=== PATIENT | male | born 1980 | race Caucasian/White ===

== ENCOUNTER → 2022-03-24 | Outpatient (CLI) | payer OTHER | LOC: LAB 10:13 → LAB SHORT 10:13 | DX: J02.9 Acute pharyngitis, unspecified (principal) | CPT/HCPCS: 87081; 87147 ==

== ENCOUNTER 2022-05-01 09:54 | Emergency (ER) | payer OTHER ==
[~2022-05-01] VITALS: Ht 185.4 cm; Wt 88.5 kg
[2022-05-01] MEDS ORDERED: ALBU90OI (10:28)
[2022-05-01 11:22] LABS: BASOPHILS ABSOLUTE AUTO 0.06 K/mm3 (0.00-0.23); BASOPHILS PERCENT AUTO 1 % (0-2); EOSINOPHILS ABSOLUTE AUTO 0.08 K/mm3 (0.00-0.68); EOSINOPHILS PERCENT AUTO 1 % (0-6); Hematocrit 48.2 % (37.0-53.0); Hemoglobin 16.6 g/dL (13.5-17.5); IMMATURE GRAN ABSOLUTE AUTO 0.04 K/mm3 (0.00-0.10); IMMATURE GRAN PERCENT AUTO 0 % (0-1); LYMPHOCYTES ABSOLUTE AUTO 2.37 K/mm3 (0.84-5.20); LYMPHOCYTES PERCENT AUTO 26 % (21-46); MONOCYTES ABSOLUTE AUTO 0.72 K/mm3 (0.16-1.47); MONOCYTES PERCENT AUTO 8 % (4-13); Mean Corpuscular HGB 32.5 pg (26.0-34.0); Mean Corpuscular HGB Conc 34.4 g/dL (31.5-36.5); Mean Corpuscular Volume 94 fL (80-100); Mean Platelet Volume 10.5 fL (9.1-12.4); NEUTROPHILS ABSOLUTE AUTO 5.95 K/mm3 (1.96-9.15); NEUTROPHILS PERCENT AUTO 65 % (41-73); Platelet Count 254 K/mm3 (150-400); RDW Coefficient Variation 13.2 % (11.7-14.2); Red Blood Cell Count 5.11 M/mm3 (4.30-5.90); White Blood Cell Count 9.22 K/mm3 (4.00-11.30)
[2022-05-01 11:39] LABS: Bilirubin, Total 0.9 mg/dL (0.1-1.0); Bun/Creatinine Ratio 12.6 (12.0-20.0); Calcium, Blood 8.5 mg/dL (8.5-10.1); Creatinine, Blood 0.87 mg/dL (0.60-1.20); Potassium, Blood 4.3 mmol/L (3.5-5.5)
[2022-05-01 12:37] LABS: Influenza A, PCR NEGATIVE (NEGATIVE); Influenza B, PCR NEGATIVE (NEGATIVE); Resp Syncytial Virus, PCR NEGATIVE (NEGATIVE); SARS-Cov-2 (COVID-19) PCR, MMC NEGATIVE (NEGATIVE)
[2022-05-01] MEDS ORDERED: Lasix20 MG PO (13:31)
== END 2022-05-01 13:41 | disposition home or self-care (01) ==
LOC: ER 09:54
PROVIDERS: Emergency Medicine; Internal Medicine Hematology & Oncology
DX: I50.9 Heart failure, unspecified (principal); J45.909 Unspecified asthma, uncomplicated; Z20.822 Contact with and (suspected) exposure to COVID-19
CPT/HCPCS: 0241U; 36415; 71046; 80053; 83880; 85025; 93005; 93010; A9270

== ENCOUNTER 2022-05-08 10:37 | Emergency (ER) | payer SELFPAY ==
[~2022-05-08] VITALS: Ht 185.4 cm; Wt 93.9 kg
[~2022-05-08 10:37] MED LIST: ALBU90OI; Lasix20 MG PO
[2022-05-08 12:21] LABS: BASOPHILS ABSOLUTE AUTO 0.07 K/mm3 (0.00-0.23); BASOPHILS PERCENT AUTO 1 % (0-2); EOSINOPHILS ABSOLUTE AUTO 0.07 K/mm3 (0.00-0.68); EOSINOPHILS PERCENT AUTO 1 % (0-6); Hematocrit 48.6 % (37.0-53.0); Hemoglobin 16.4 g/dL (13.5-17.5); IMMATURE GRAN ABSOLUTE AUTO 0.05 K/mm3 (0.00-0.10); IMMATURE GRAN PERCENT AUTO 1 % (0-1); LYMPHOCYTES ABSOLUTE AUTO 2.25 K/mm3 (0.84-5.20); LYMPHOCYTES PERCENT AUTO 24 % (21-46); MONOCYTES PERCENT AUTO 9 % (4-13); Mean Corpuscular HGB 31.9 pg (26.0-34.0); Mean Corpuscular HGB Conc 33.7 g/dL (31.5-36.5); Mean Corpuscular Volume 95 fL (80-100); Mean Platelet Volume 10.6 fL (9.1-12.4); NEUTROPHILS PERCENT AUTO 65 % (41-73); Platelet Count 256 K/mm3 (150-400); RDW Standard Deviation 45.9 fL (35.1-46.3); Red Blood Cell Count 5.14 M/mm3 (4.30-5.90); White Blood Cell Count 9.34 K/mm3 (4.00-11.30)
[2022-05-08 12:35] LABS: Albumin, Blood 2.9 g/dL (3.4-5.0); Bilirubin, Total 0.9 mg/dL (0.1-1.0); Bun/Creatinine Ratio 17.3 (12.0-20.0); Calcium, Blood 8.5 mg/dL (8.5-10.1); Creatinine, Blood 1.04 mg/dL (0.60-1.20); Potassium, Blood 4.7 mmol/L (3.5-5.5); Total Protein, Blood 5.9 g/dL (6.4-8.2)
[2022-05-08] MEDS ORDERED: LISI5 PO (12:49)
[2022-05-08] MEDS ORDERED: Lopressor 25 mg25 MG PO (14:29)
[2022-05-08] MEDS ORDERED: FURO40 PO (14:29)
== END 2022-05-08 15:26 | disposition home or self-care (01) ==
LOC: ER 10:37
PROVIDERS: Student in an Organized Health Care Education/Training Program
DX: I50.9 Heart failure, unspecified (principal); Z79.899 Other long term (current) drug therapy; Z72.0 Tobacco use
CPT/HCPCS: 36415; 71045; 80053; 83880; 84484; 85025; 93005; 93010; A9270; J1940

== ENCOUNTER 2022-05-15 14:00 | Inpatient (IN) | payer OTHER ==
[~2022-05-15] VITALS: Ht 185.4 cm; Wt 85.5 kg
[~2022-05-15 14:00] MED LIST changes: -FURO80 PO; -METOPROLOL TART25 MG PO; -POT CHLORIDE 20 MEQ
[2022-05-15 20:36] LABS: BASOPHILS ABSOLUTE AUTO 0.07 K/mm3 (0.00-0.23); BASOPHILS PERCENT AUTO 1 % (0-2); EOSINOPHILS ABSOLUTE AUTO 0.08 K/mm3 (0.00-0.68); EOSINOPHILS PERCENT AUTO 1 % (0-6); Hemoglobin 15.9 g/dL (13.5-17.5); IMMATURE GRAN ABSOLUTE AUTO 0.06 K/mm3 (0.00-0.10); IMMATURE GRAN PERCENT AUTO 1 % (0-1); LYMPHOCYTES ABSOLUTE AUTO 2.97 K/mm3 (0.84-5.20); LYMPHOCYTES PERCENT AUTO 23 % (21-46); MONOCYTES ABSOLUTE AUTO 1.37 K/mm3 (0.16-1.47); MONOCYTES PERCENT AUTO 11 % (4-13); Mean Corpuscular HGB 31.9 pg (26.0-34.0); Mean Corpuscular HGB Conc 35.3 g/dL (31.5-36.5); Mean Corpuscular Volume 90 fL (80-100); Mean Platelet Volume 10.5 fL (9.1-12.4); NEUTROPHILS PERCENT AUTO 65 % (41-73); Platelet Count 252 K/mm3 (150-400); RDW Coefficient Variation 12.7 % (11.7-14.2); RDW Standard Deviation 41.8 fL (35.1-46.3); Red Blood Cell Count 4.98 M/mm3 (4.30-5.90); White Blood Cell Count 12.95 K/mm3 (4.00-11.30)
[2022-05-15 20:56] LABS: Albumin, Blood 2.7 g/dL (3.4-5.0); Bilirubin, Total 0.6 mg/dL (0.1-1.0); Globulin, Blood 2.7 g/dL (2.2-4.0); Potassium, Blood 3.7 mmol/L (3.5-5.5); Total Protein, Blood 5.4 g/dL (6.4-8.2)
[2022-05-15 21:22] LABS: Influenza A, PCR NEGATIVE (NEGATIVE); Influenza B, PCR NEGATIVE (NEGATIVE); Resp Syncytial Virus, PCR NEGATIVE (NEGATIVE); SARS-Cov-2 (COVID-19) PCR, MMC NEGATIVE (NEGATIVE)
[2022-05-16] MEDS ORDERED: POT CHLORIDE 20 MEQ (00:59)
[2022-05-16] MEDS ORDERED: FURO80 PO (00:59)
[2022-05-16] MEDS ORDERED: LISI5 PO (00:59)
[2022-05-16] MEDS ORDERED: METOPROLOL TART25 MG PO (00:59)
[2022-05-16 06:03] LABS: BASOPHILS ABSOLUTE AUTO 0.08 K/mm3 (0.00-0.23); BASOPHILS PERCENT AUTO 1 % (0-2); EOSINOPHILS ABSOLUTE AUTO 0.05 K/mm3 (0.00-0.68); EOSINOPHILS PERCENT AUTO 0 % (0-6); Hematocrit 44.6 % (37.0-53.0); Hemoglobin 15.3 g/dL (13.5-17.5); IMMATURE GRAN ABSOLUTE AUTO 0.06 K/mm3 (0.00-0.10); IMMATURE GRAN PERCENT AUTO 1 % (0-1); LYMPHOCYTES ABSOLUTE AUTO 2.57 K/mm3 (0.84-5.20); LYMPHOCYTES PERCENT AUTO 21 % (21-46); MONOCYTES ABSOLUTE AUTO 1.19 K/mm3 (0.16-1.47); MONOCYTES PERCENT AUTO 10 % (4-13); Mean Corpuscular HGB 31.7 pg (26.0-34.0); Mean Corpuscular HGB Conc 34.3 g/dL (31.5-36.5); Mean Corpuscular Volume 92 fL (80-100); NEUTROPHILS ABSOLUTE AUTO 8.29 K/mm3 (1.96-9.15); NEUTROPHILS PERCENT AUTO 68 % (41-73); Platelet Count 241 K/mm3 (150-400); RDW Coefficient Variation 12.9 % (11.7-14.2); RDW Standard Deviation 43.6 fL (35.1-46.3); Red Blood Cell Count 4.83 M/mm3 (4.30-5.90); White Blood Cell Count 12.24 K/mm3 (4.00-11.30)
[2022-05-16 06:22] LABS: Magnesium, Blood 2.1 mg/dL (1.6-2.4)
[2022-05-16 06:23] LABS: Bun/Creatinine Ratio 13.3 (12.0-20.0); Calcium, Blood 8.1 mg/dL (8.5-10.1); Creatinine, Blood 0.97 mg/dL (0.60-1.20); Potassium, Blood 3.7 mmol/L (3.5-5.5)
[2022-05-16 09:05] LABS: U Amphetamine Screen Not Detected; U Barbituate Screen Not Detected; U Benzodiazapine Screen Not Detected; U Buprenorphine Screen Not Detected; U Cannabinoids Screen Not Detected; U Cocaine Screen Not Detected; U Methadone Screen Not Detected; U Methamphetamine Screen Not Detected; U Opiates Screen Not Detected; U Oxycodone Screen Not Detected; U Phencyclidine Screen Not Detected; U Propoxyphene Screen Not Detected
--- NOTE | 2022-05-16 17:44 | NUR ---
SHIFT SUMMARY PATIENT IS ALERT AND ORIENTED. PATIENT ARRIVED TO MEDICAL FLOOR THIS AFTERNOON AT 1600. PATIENT HAS BEEN IND IN ROOM. PATIENT HAS NOT COMPLAINED OF PAIN, NAUSEA, SOB OR VOMITTING THIS SHIFT. NO ACUTE EVENTS THIS SHIFT. VITAL SIGNS REVIEWED. BED IN LOCKED AND LOWEST POSITION. CALL LIGHT IN PLACE. WILL MONITOR UNTIL SHIFT CHANGE.
--- NOTE | 2022-05-17 04:14 | NUR ---
SHIFT UNREMARKABLE. PATIENT TOOK 2100 AND 2300 MEDICATIONS WITHOUT DIFFICULTY. SLEPT THROUGHOUT REMAINDER OF SHIFT. LUNG AUSCULATION REMARKABLE FOR DIMINISHED BREATH SOUNDS. PATIENT REPORTED LABORED BREATHING. OXYGEN SATURATION HAS BEEN WNL. CALL LIGHT LEFT WITHIN REACH.
[2022-05-17 05:05] LABS: BASOPHILS ABSOLUTE AUTO 0.07 K/mm3 (0.00-0.23); BASOPHILS PERCENT AUTO 1 % (0-2); EOSINOPHILS ABSOLUTE AUTO 0.06 K/mm3 (0.00-0.68); EOSINOPHILS PERCENT AUTO 1 % (0-6); Hematocrit 45.9 % (37.0-53.0); Hemoglobin 15.4 g/dL (13.5-17.5); IMMATURE GRAN ABSOLUTE AUTO 0.04 K/mm3 (0.00-0.10); IMMATURE GRAN PERCENT AUTO 0 % (0-1); LYMPHOCYTES ABSOLUTE AUTO 3.37 K/mm3 (0.84-5.20); LYMPHOCYTES PERCENT AUTO 28 % (21-46); MONOCYTES ABSOLUTE AUTO 1.23 K/mm3 (0.16-1.47); MONOCYTES PERCENT AUTO 10 % (4-13); Mean Corpuscular HGB 31.6 pg (26.0-34.0); Mean Corpuscular HGB Conc 33.6 g/dL (31.5-36.5); Mean Corpuscular Volume 94 fL (80-100); Mean Platelet Volume 10.7 fL (9.1-12.4); NEUTROPHILS ABSOLUTE AUTO 7.08 K/mm3 (1.96-9.15); NEUTROPHILS PERCENT AUTO 60 % (41-73); Platelet Count 220 K/mm3 (150-400); RDW Coefficient Variation 13.1 % (11.7-14.2); RDW Standard Deviation 45.1 fL (35.1-46.3); Red Blood Cell Count 4.87 M/mm3 (4.30-5.90); White Blood Cell Count 11.85 K/mm3 (4.00-11.30)
[2022-05-17 05:29] LABS: Albumin, Blood 2.7 g/dL (3.4-5.0); Albumin/Globulin Ratio 0.8 (0.8-1.8); Bilirubin, Total 1.7 mg/dL (0.1-1.0); Calcium, Blood 8.3 mg/dL (8.5-10.1); Creatinine, Blood 1.08 mg/dL (0.60-1.20); Globulin, Blood 3.2 g/dL (2.2-4.0); Potassium, Blood 4.4 mmol/L (3.5-5.5); Total Protein, Blood 5.9 g/dL (6.4-8.2)
--- NOTE | 2022-05-17 17:00 | NUR ---
SHIFT SUMMARY NO ACUTE CHANGES. PT INDEPENDENT IN ROOM AND AMBULATES IN [place] INDEPENDENTLY. SIGNIFICANT OTHER AT BEDSIDE FOR MOST OF THE DAY. NO C/O PAIN. VSS WITH THE EXCEPTION OF HR WHICH RUNS TACHY IN THE 110'S. BED IN LOWEST POSITION AND CALL LIGHT IN REACH.
--- NOTE | 2022-05-18 04:20 | NUR ---
SHIFT SUMMARY PATIENT IS ALERT AND ORIENTED. PATIENT HAS BEEN IND IN ROOM AND HALLWAYS THIS SHIFT. PATIENT HAS HAD NO ACUTE EVENTS THIS SHIFT. VITAL SIGNS REVIEWED. PATIENT HAS BEEN IN STRICT I/O THIS SHIFT. PATIENT HAS BEEN USING URINAL IND AND HAS BEEN OUTPUTTING A LARGE AMOUNT OF URINE. PATIENT HAS BEEN RUNNING TACHY ON TELE BUT NO UNUSUAL EVENTS. PATIENT HAS HAD NO COMPLAINTS OF PAIN, NAUSEA, SOB OR VOMITTING. BED IN LOCKED AND LOWEST POSITION. CALL LIGHT IN PLACE. WILL MONITOR UNTIL SHIFT CHANGE.
[2022-05-18 08:04] LABS: Magnesium, Blood 2.1 mg/dL (1.6-2.4)
[2022-05-18 08:08] LABS: Bun/Creatinine Ratio 14.4 (12.0-20.0); Calcium, Blood 8.1 mg/dL (8.5-10.1); Creatinine, Blood 0.97 mg/dL (0.60-1.20); Potassium, Blood 3.6 mmol/L (3.5-5.5); Thyroid Stimulating Hormone 1.98 uIU/mL (0.360-4.800)
--- NOTE | 2022-05-18 09:06 | NUR ---
DR ESPINOSA CONTACTED-INCREASED METOPROLOL, LOW RANGE BP THIS RN INSTRUCTED TO ADMIN METOPROLOL, HOLD SPIROLACTONE AND TOROSAMIDE.
--- NOTE | 2022-05-18 18:30 | NUR ---
SHIFT SUMMARY PT A&OX4 AND IN PLEASENT MOOD T/O SHIFT. TOLERATING PO INTAKE. AMBULATING HALLS W/ STEADY GAIT. DENIES SOB, CHEST PAIN-PT STATES "MY CHEST DOESN'T HURT IT IS JUST A DISCOMFORT". TELE IN PLACE. PLAN TO INITIATE PO THINNERS ON NEXT SHIFT. CALL LIGHT W/ IN REACH. TACHYCARDIA NOTED, METOPROLOL INCREASED TO 25MG.
[2022-05-19 05:04] LABS: Bun/Creatinine Ratio 18.4 (12.0-20.0); Calcium, Blood 8.1 mg/dL (8.5-10.1); Creatinine, Blood 1.14 mg/dL (0.60-1.20); Potassium, Blood 4.1 mmol/L (3.5-5.5)
--- NOTE | 2022-05-19 07:08 | NUR ---
Shift Summary Pt AOx4, was over fluid restriction on arrival, rcvd no fluids t/o the night. Pt states he was unable to sleep for most of the night, partly because of dry mouth. Independent in the room. On tele, ran tachy in the 110's. Pt periodically ambulated through the halls. No acute events, pleasant and cooperative with care.
[2022-05-19 16:56] LABS: Influenza A, PCR NEGATIVE (NEGATIVE); Influenza B, PCR NEGATIVE (NEGATIVE); Resp Syncytial Virus, PCR NEGATIVE (NEGATIVE); SARS-Cov-2 (COVID-19) PCR, MMC NEGATIVE (NEGATIVE)
--- NOTE | 2022-05-19 17:03 | NUR ---
SHIFT SUMMARY PT A&OX4, MOOD UP AND DOWN T/O SHIFT. FEVER NOTED, MEDICATED W/ TYLENOL-SWAB AND BLOOD CULTURE PENDING @ THIS TIME. PT C/O ANXIETY, PLAN TO MEDICATE PER EMAR. TOLERATING PO INTAKE WELL. [address] VOIDING LARGE AMOUNTS OF DARK YELLOW URINE. CALL LIGHT W/IN REACH. FRIENDS/FAMILY IN TO SEE PT DURING VISITING HOURS. PT IND, AMB W/ STEADY GAIT.
[2022-05-19 18:55] LABS: BASOPHILS ABSOLUTE AUTO 0.05 K/mm3 (0.00-0.23); BASOPHILS PERCENT AUTO 1 % (0-2); EOSINOPHILS ABSOLUTE AUTO 0.02 K/mm3 (0.00-0.68); EOSINOPHILS PERCENT AUTO 0 % (0-6); Hematocrit 43.9 % (37.0-53.0); Hemoglobin 15.4 g/dL (13.5-17.5); IMMATURE GRAN ABSOLUTE AUTO 0.04 K/mm3 (0.00-0.10); IMMATURE GRAN PERCENT AUTO 1 % (0-1); LYMPHOCYTES ABSOLUTE AUTO 0.53 K/mm3 (0.84-5.20); LYMPHOCYTES PERCENT AUTO 9 % (21-46); MONOCYTES ABSOLUTE AUTO 0.57 K/mm3 (0.16-1.47); MONOCYTES PERCENT AUTO 10 % (4-13); Mean Corpuscular HGB Conc 35.1 g/dL (31.5-36.5); Mean Corpuscular Volume 91 fL (80-100); Mean Platelet Volume 10.6 fL (9.1-12.4); NEUTROPHILS ABSOLUTE AUTO 4.46 K/mm3 (1.96-9.15); NEUTROPHILS PERCENT AUTO 79 % (41-73); Platelet Count 230 K/mm3 (150-400); RDW Coefficient Variation 12.6 % (11.7-14.2); RDW Standard Deviation 41.7 fL (35.1-46.3); Red Blood Cell Count 4.82 M/mm3 (4.30-5.90); White Blood Cell Count 5.67 K/mm3 (4.00-11.30)
[2022-05-19 20:01] LABS: Source, Urine Clean Catch
[2022-05-19 20:02] LABS: Appearance, Urine Clear (Clear); Bilirubin, Urine Neg (Neg); Blood, Urine 2+ (Neg); Color, Urine Yellow (P-Yellow); Glucose Qualitative, Urine 4+ (Neg); Ketones, Urine Neg (Neg); Leukocyte Esterase, Urine Neg (Neg); Nitrite, Urine Neg (Neg); Protein, Urine Neg (Neg); Urobilinogen, Urine 2+ (Normal)
[2022-05-19 20:23] LABS: White Blood Cells, Urine 0-2 /hpf (0-5)
[2022-05-19 20:24] LABS: Bacteria Rare /hpf; Squamous Epithelial Cells Not Seen /hpf (Few)
--- NOTE | 2022-05-20 05:37 | NUR ---
SHIFT SUMMARY PATIENT ALERT AND ORIENTED X4. MEDICATED PER EMAR FOR PAIN. PATIENT HAD NO COMPLAINTS OF SHORTNESS OF BREATH. PATIENT REPORTED THAT HE TYPICALLY DRINKS ABOUT 10 BEERS A DAY AND THAT HIS LAST DRINK WAS ABOUT 4 DAYS AGO. HE IS CONCERNED THAT HE IS STARTING TO EXPERIENCE WITHDRAWL SYMPTOMS. REPORTS ANXIETY, AGITATION, HEADACHE, AND CONFUSION AT TIMES. CALL LIGHT WITHIN REACH. REPORT GIVEN TO ONCOMING RN.
--- NOTE | 2022-05-20 11:01 | NUR ---
8 BEAT VTACH-JUST UNDER 2 SEC REPORTED TO
--- NOTE | 2022-05-20 16:32 | NUR ---
SHIFT SUMMARY PT A&OX4 AND IN PLEASENT MOOD T/O SHIFT, ANX NOTED AND MEDICATED PER EMAR. TOLERATING PO INTAKE WELL. CALL LIGHT W/IN REACH. VSS, TACHICARDIA NOTED. CIWA PRN-PT REPORTS DRINKING 8-10 BEERS [address]LY[address] TELE IN PLACE, ST 120. INSURANCE REPORTS NO COVERAGE FOR ORDERED LIFE VEST, PT COMPLETED APPLICATION FOR FINANCIAL ASSISTANCE-WAITING FOR PROOF OF INCOME, PLAN TO FAX BACK TO [facility] OFFICE. CALL LIGHT W/IN REACH. AMB IND W/ STEADY GAIT. DENIES CP/PRESSURE. RA.
--- NOTE | 2022-05-20 17:24 | NUR ---
[facility] BR[employer] SPOKE WITH [facility] REP, BLAYNE VICTOR [phone], PATIENT ASSISTANCE PACKET OBTAINED, PT FILLED IT OUT, IT HAS BEEN FAXED BACK TO [facility]
[2022-05-20 18:58] LABS: BASOPHILS ABSOLUTE AUTO 0.04 K/mm3 (0.00-0.23); BASOPHILS PERCENT AUTO 1 % (0-2); EOSINOPHILS PERCENT AUTO 0 % (0-6); Hematocrit 44.2 % (37.0-53.0); Hemoglobin 15.3 g/dL (13.5-17.5); IMMATURE GRAN ABSOLUTE AUTO 0.03 K/mm3 (0.00-0.10); IMMATURE GRAN PERCENT AUTO 1 % (0-1); LYMPHOCYTES ABSOLUTE AUTO 1.17 K/mm3 (0.84-5.20); LYMPHOCYTES PERCENT AUTO 24 % (21-46); MONOCYTES ABSOLUTE AUTO 0.83 K/mm3 (0.16-1.47); MONOCYTES PERCENT AUTO 17 % (4-13); Mean Corpuscular HGB 31.7 pg (26.0-34.0); Mean Corpuscular HGB Conc 34.6 g/dL (31.5-36.5); Mean Corpuscular Volume 92 fL (80-100); Mean Platelet Volume 10.7 fL (9.1-12.4); NEUTROPHILS ABSOLUTE AUTO 2.82 K/mm3 (1.96-9.15); NEUTROPHILS PERCENT AUTO 58 % (41-73); Platelet Count 223 K/mm3 (150-400); RDW Coefficient Variation 12.6 % (11.7-14.2); RDW Standard Deviation 42.5 fL (35.1-46.3); Red Blood Cell Count 4.83 M/mm3 (4.30-5.90); White Blood Cell Count 4.89 K/mm3 (4.00-11.30)
--- NOTE | 2022-05-20 21:37 | NUR ---
PHYSICIAN COMMUNICATION CONTACTED DR FINCH TO NOTIFY HIM THAT THE PATIENT'S BLOOD PRESSURE WAS 86/64 MANUALLY, HIS HEART RATE WAS TACHYCARDIC IN THE ONE TEENS, THAT HE HAD A 5 BEAT RUN OF V TACH, AND THAT PATIENT WAS DENYING DIZZINESS OR BEING LIGHT HEADED. EXPLAINED THAT THE PATIENT WAS HERE FOR BILAT PULMONARY EMBOLISM WITH A NEW DIAGNOSIS OF CARDIOMYOPATHY AND EJECTION FRACTION OF 10-15%, AND THAT THE PATIENT IS ON A 2,000 ML FLUID RESTRICTION. ALSO NOTED THAT PATIENT HAD BEEN RECENTLY SWITCHED FROM IV DIURETICS TO PO. DR FINCH SAID TO CONTINUE TO MONITOR THE PATIENT HE IS ASYMPTOMATIC. NO NEW ORDERS.
[2022-05-21 05:02] LABS: BASOPHILS ABSOLUTE AUTO 0.04 K/mm3 (0.00-0.23); BASOPHILS PERCENT AUTO 1 % (0-2); EOSINOPHILS ABSOLUTE AUTO 0.01 K/mm3 (0.00-0.68); EOSINOPHILS PERCENT AUTO 0 % (0-6); Hematocrit 43.3 % (37.0-53.0); Hemoglobin 14.8 g/dL (13.5-17.5); IMMATURE GRAN ABSOLUTE AUTO 0.03 K/mm3 (0.00-0.10); IMMATURE GRAN PERCENT AUTO 1 % (0-1); LYMPHOCYTES ABSOLUTE AUTO 2.06 K/mm3 (0.84-5.20); LYMPHOCYTES PERCENT AUTO 45 % (21-46); MONOCYTES ABSOLUTE AUTO 0.79 K/mm3 (0.16-1.47); MONOCYTES PERCENT AUTO 17 % (4-13); Mean Corpuscular HGB 31.6 pg (26.0-34.0); Mean Corpuscular HGB Conc 34.2 g/dL (31.5-36.5); Mean Corpuscular Volume 92 fL (80-100); NEUTROPHILS ABSOLUTE AUTO 1.69 K/mm3 (1.96-9.15); NEUTROPHILS PERCENT AUTO 37 % (41-73); Platelet Count 211 K/mm3 (150-400); RDW Coefficient Variation 12.7 % (11.7-14.2); RDW Standard Deviation 42.9 fL (35.1-46.3); Red Blood Cell Count 4.69 M/mm3 (4.30-5.90); White Blood Cell Count 4.62 K/mm3 (4.00-11.30)
[2022-05-21 05:24] LABS: Albumin, Blood 2.3 g/dL (3.4-5.0); Albumin/Globulin Ratio 0.7 (0.8-1.8); Bilirubin, Total 0.6 mg/dL (0.1-1.0); Calcium, Blood 7.9 mg/dL (8.5-10.1); Creatinine, Blood 1.26 mg/dL (0.60-1.20); Globulin, Blood 3.1 g/dL (2.2-4.0); Potassium, Blood 4.4 mmol/L (3.5-5.5); Total Protein, Blood 5.4 g/dL (6.4-8.2)
--- NOTE | 2022-05-21 05:48 | NUR ---
SHIFT SUMMARY PATIENT ALERT AND ORIENTED. PATIENT HAD NO COMPLAINTS OF PAIN OR SHORTNESS OF BREATH. PATIENT'S BLOOD PRESSURE HAS BEEN HYPOTENSIVE OVERNIGHT, SLIGHTLY IMPROVED THIS MORNING. CIWA SCORE WAS 4. NO OTHER ISSUES NOTED. CALL LIGHT WITHIN REACH. REPORT GIVEN TO ONCOMING RN.
--- NOTE | 2022-05-21 10:56 | NUR ---
RN NOTE MR MARTINEZ IS A&OX4. HE SAID HE FEELS MILDLY ANXIOUS, BUT NO OTHER S/S WITHDRAWAL THIS MORNING. ISAURAWA 1. UP INDEPENDENTLY IN HIS ROOM, GIRLFRIEND AT BEDSIDE. HE SAID HE CALLED AND HAS ARRANGED FOR LIFE VEST DELIVERY TO [facility], WHICH IS WHAT HE WAS WAITING ON FOR DISCHARGE. DENIES ANY PAIN.
--- NOTE | 2022-05-21 12:46 | NUR ---
RN NOTE BOAZ WITH DR MARAVILLA'S OFFICE SAID SHE WILL LIKELY BE HERE ABOUT 1715 TODAY TO BRING LIFE VEST, EDUCATION USUALLY TAKES AROUND 1-1.5 HRS. PT REQUESTED MED FOR ANXIETY BEFORE LUNCH, BUT BP 91/70, SO IN AGREEMENT WITH PT NO MEDICATION GIVEN. DR BOLDEN CALLED AND NOTIFIED OF THE ABOVE PT UPDATES. HE IS COMING TO ASSESS PT THIS AFTERNOON.
[2022-05-21 16:11] LABS: ACT. PRT C RESIST W/FV DEFIC. 2.6 ratio (.); APTT 28.7 sec (.); DRVVT SCREEN SECONDS 42.6 sec (.); FACTOR VIII ACTIVITY 176 % (.); HEXAGONAL PHOSPHOLIPID NEUTRAL 0 sec (.); HOMOCYSTEINE 10.9 umol/L (.); PRT C ACTIVITY (CHROMOGENIC) 64 % (.)
--- NOTE | 2022-05-21 16:40 | NUR ---
SHIFT SUMMARY PT SEEN BY DR BOLDEN AND DISCHARGE ORDERS ENTERED PENDING ARRIVAL OF LIFE VEST. MR MARTINEZ HAS BEEN UP AMBULATING INDEPENDENTLY IN THE HALLWAYS. NO C/O CHEST PAIN OR SOB. PT VERBALISED GOOD UNDERSTANDING OF REASONS FOR FLUID RESTRICTION AND SAID HE IS GOING TO STAY WITH HIS PARENTS WHEN DISCHARGED FROM HOSPITAL.
[2022-05-21] MEDS ORDERED: SOAANZ40 M1 PO (17:58)
[2022-05-21] MEDS ORDERED: METO50ER PO (17:58)
[2022-05-21] MEDS ORDERED: ELIQUIS5 M2 PO ×2 (18:00→18:01)
[2022-05-21] MEDS ORDERED: BUSP10 PO (18:02)
[2022-05-21] MEDS ORDERED: JARDIANCE10 MG PO (18:04)
[2022-05-21] MEDS ORDERED: LOSA25 PO (18:04)
[2022-05-21] MEDS ORDERED: SPIR25 PO (18:05)
--- NOTE | 2022-05-21 18:14 | NUR ---
RN NOTE RECEIVED CALL FROM BOAZ FROM DR MARAVILLA'S OFFICE; LIFE VEST HAS NOT BEEN DELIVERED YET TO HER HOUSE. SHE WILL CALL THE MEDICAL UNIT WHEN IT ARRIVES, AND WILL DELIVER IT IF IT'S A SUITABLE TIME FOR PT (NOT TOO LATE). DELAYS EXPLAINED TO PT AND HE SAID HE UNDERSTANDS. DR BOLDEN INFORMED THAT THERE IS A POSSIBILITY THAT PT WILL STAY OVERNIGHT TO WAIT FOR LIFE VEST.
--- NOTE | 2022-05-21 22:00 | NUR ---
PT DISCHARGED HOME. PT WAS EDUCATED ON HOW TO USE LIFE VEST FOR BILATERAL PE. PT TEACHING ON MEDICATIONS AND OUT PT APPOINTMENTS WAS GIVEN. PT VSS. PT LAST TELE READING NSR WITH HR 109 BPM. A/OX4. INDEPENDENT. PT LEFT WITH ALL BELONGINGS AND WAS ESCORTED BY WC OUT TO MEET RIDE OUTSIDE ED.
== END 2022-05-21 21:50 | disposition home or self-care (01) | DRG 176 ==
LOC: ER 14:00 → ERHOLD 14:01 → MEDS 05-16 14:49 → ERHOLD 05-16 14:49 → MEDS 05-16 16:19
PROVIDERS: Internal Medicine; Internal Medicine Cardiovascular Disease; Nurse Practitioner Acute Care; Student in an Organized Health Care Education/Training Program; ADMIT Internal Medicine
DX: I26.94 Multiple subsegmental thrombotic pulmonary emboli without acute cor pulmonale (principal); I42.8 Other cardiomyopathies; F10.239 Alcohol dependence with withdrawal, unspecified; I50.22 Chronic systolic (congestive) heart failure; Z20.822 Contact with and (suspected) exposure to COVID-19; F17.210 Nicotine dependence, cigarettes, uncomplicated; J44.9 Chronic obstructive pulmonary disease, unspecified; D72.828 Other elevated white blood cell count; I11.0 Hypertensive heart disease with heart failure
CPT/HCPCS: 0241U; 36415; 71045; 80048; 80053; 81001; 81240; 83036; 83090; 83735; 83880; 84145; 84443; 84484; 85025; 85240; 85300; 85303; 85306; 85307; 85613; 85730; 85732; 86146; 86147; 87040; 87086; 93306; 93970; 94640; 94664; 94760; 96372-59; 99284-25; A9270; J1650; J1940; J2270

== ENCOUNTER → 2022-05-15 | Outpatient (CLI) | payer OTHER ==
[~2022-05-15] MED LIST changes: +FURO40 PO; +FURO80 PO; +LISI5 PO; +Lopressor 25 mg25 MG PO; +METOPROLOL TART25 MG PO; +POT CHLORIDE 20 MEQ
[2022-05-15 12:00] LABS: BASOPHILS ABSOLUTE AUTO 0.07 K/mm3 (0.00-0.23); BASOPHILS PERCENT AUTO 1 % (0-2); EOSINOPHILS ABSOLUTE AUTO 0.06 K/mm3 (0.00-0.68); EOSINOPHILS PERCENT AUTO 1 % (0-6); Hematocrit 48.1 % (37.0-53.0); Hemoglobin 16.6 g/dL (13.5-17.5); IMMATURE GRAN ABSOLUTE AUTO 0.06 K/mm3 (0.00-0.10); IMMATURE GRAN PERCENT AUTO 1 % (0-1); LYMPHOCYTES ABSOLUTE AUTO 2.03 K/mm3 (0.84-5.20); LYMPHOCYTES PERCENT AUTO 16 % (21-46); MONOCYTES ABSOLUTE AUTO 0.91 K/mm3 (0.16-1.47); MONOCYTES PERCENT AUTO 7 % (4-13); Mean Corpuscular HGB Conc 34.5 g/dL (31.5-36.5); Mean Corpuscular Volume 93 fL (80-100); Mean Platelet Volume 10.9 fL (9.1-12.4); NEUTROPHILS PERCENT AUTO 76 % (41-73); Platelet Count 255 K/mm3 (150-400); RDW Coefficient Variation 12.8 % (11.7-14.2); RDW Standard Deviation 44.1 fL (35.1-46.3); Red Blood Cell Count 5.18 M/mm3 (4.30-5.90); White Blood Cell Count 12.83 K/mm3 (4.00-11.30)
[2022-05-15 12:09] LABS: Bilirubin, Total 1.5 mg/dL (0.1-1.0); Bun/Creatinine Ratio 10.6 (12.0-20.0); Calcium, Blood 8.4 mg/dL (8.5-10.1); Creatinine, Blood 1.41 mg/dL (0.60-1.20); Globulin, Blood 3.1 g/dL (2.2-4.0); Total Protein, Blood 6.1 g/dL (6.4-8.2)
== END | disposition home or self-care (01) ==
LOC: LAB SHORT 11:53 → LAB 11:53
PROVIDERS: Physician Assistant
DX: R04.2 Hemoptysis (principal)
CPT/HCPCS: 80053; 83880; 84484; 85025; 85379

== ENCOUNTER 2022-06-03 17:43 | Observation (INO) | payer OTHER ==
[~2022-06-03] VITALS: Ht 188 cm; Wt 88.5 kg
[~2022-06-03 17:43] MED LIST changes: +BUSP10 PO; +ELIQUIS5 M2 PO; +FURO80 PO; +JARDIANCE10 MG PO; +LOSA25 PO; +METO50ER PO; +METOPROLOL TART25 MG PO; +POT CHLORIDE 20 MEQ; +SOAANZ40 M1 PO; +SPIR25 PO
[2022-06-03 18:24] LABS: BASOPHILS ABSOLUTE AUTO 0.05 K/mm3 (0.00-0.23); BASOPHILS PERCENT AUTO 0 % (0-2); EOSINOPHILS ABSOLUTE AUTO 0.02 K/mm3 (0.00-0.68); EOSINOPHILS PERCENT AUTO 0 % (0-6); Hemoglobin 16.2 g/dL (13.5-17.5); IMMATURE GRAN ABSOLUTE AUTO 0.05 K/mm3 (0.00-0.10); IMMATURE GRAN PERCENT AUTO 0 % (0-1); LYMPHOCYTES ABSOLUTE AUTO 2.52 K/mm3 (0.84-5.20); LYMPHOCYTES PERCENT AUTO 19 % (21-46); MONOCYTES ABSOLUTE AUTO 1.02 K/mm3 (0.16-1.47); MONOCYTES PERCENT AUTO 8 % (4-13); Mean Corpuscular HGB 30.7 pg (26.0-34.0); Mean Corpuscular HGB Conc 34.5 g/dL (31.5-36.5); Mean Corpuscular Volume 89 fL (80-100); Mean Platelet Volume 9.8 fL (9.1-12.4); NEUTROPHILS PERCENT AUTO 73 % (41-73); Platelet Count 390 K/mm3 (150-400); RDW Coefficient Variation 12.6 % (11.7-14.2); RDW Standard Deviation 41.2 fL (35.1-46.3); Red Blood Cell Count 5.28 M/mm3 (4.30-5.90); White Blood Cell Count 13.36 K/mm3 (4.00-11.30)
[2022-06-03 18:55] LABS: Albumin, Blood 3.2 g/dL (3.4-5.0); Albumin/Globulin Ratio 0.9 (0.8-1.8); Bilirubin, Total 1.1 mg/dL (0.1-1.0); Bun/Creatinine Ratio 14.9 (12.0-20.0); Calcium, Blood 8.8 mg/dL (8.5-10.1); Creatinine, Blood 1.01 mg/dL (0.60-1.20); Globulin, Blood 3.6 g/dL (2.2-4.0); Potassium, Blood 4.9 mmol/L (3.5-5.5); Total Protein, Blood 6.8 g/dL (6.4-8.2)
[2022-06-03 23:14] LABS: Influenza A, PCR NEGATIVE (NEGATIVE); Influenza B, PCR NEGATIVE (NEGATIVE); Resp Syncytial Virus, PCR NEGATIVE (NEGATIVE); SARS-Cov-2 (COVID-19) PCR, MMC NEGATIVE (NEGATIVE)
--- NOTE | 2022-06-04 01:47 | NUR ---
NEW ADMIT FROM ED. A&O X4. VSS. ON TELE MONITOR, RUNNING SINUS TACH IN 11O. C/O PAIN 5/10 TO RT FLANK FROM FREQUENT COUGHING. PRN TYLENOL GIVEN WITH GOOD RESULT. INDEPENDENT IN ROOM.
--- NOTE | 2022-06-04 10:00 | NUR ---
PT A/O X4 PLEASANT SOME ANX. COUGHING MOD BLOODY SPUTUM. STATES PAIN FROM COUGH FROM RT FLANK TO FRONT ABD. DR AWARE. TYLENOL FOR PAIN. HAS BEEN ON BLOOD THINNER FOR LUNG CLOTS. THIS IS PRESENTLY STOPPED. NO OTHER CONCERNS NOTED. PER TELE STRIP S TACH 117, H/R REG, NO MURMUKR NOTED. LUNG CLEAR, ABD TENDER, VOIDS INDEPENDANT TO BATHROOM. BED IN LOW POSITION, CALL LITE IN REACH, CALLS APROP
[2022-06-04] MEDS ORDERED: ALPR.25 PO (16:17)
[2022-06-04] MEDS ORDERED: AZIT250 PO (16:17)
[2022-06-04] MEDS ORDERED: Percocet 10-321 EACH PO (16:18)
--- NOTE | 2022-06-04 17:21 | NUR ---
PT DISCHARGE REVIEWED WITH PT. HE VERBALIZED UNDERSTANDING MEDS AND INST. GAVE 2 HARD COPY RX. IV PULLED IINTACT. TELE REMOVED. PT STATES ALTHOUGH IS PRESENTLY COUGHING BLOOD SPUTUM, HE STATES FEELS IS STABLE AND OKAY FOR D/CHG. HE WHEELED TO DOOR BY AIDE AT 1710
== END 2022-06-04 17:12 | disposition home or self-care (01) ==
LOC: ER 17:43 → MEDS 17:44
PROVIDERS: Emergency Medicine; Physician Assistant; ADMIT Internal Medicine
DX: R04.2 Hemoptysis (principal); I50.9 Heart failure, unspecified; J18.9 Pneumonia, unspecified organism; I42.0 Dilated cardiomyopathy; D72.829 Elevated white blood cell count, unspecified; I26.99 Other pulmonary embolism without acute cor pulmonale; E87.1 Hypo-osmolality and hyponatremia; F41.9 Anxiety disorder, unspecified; F17.210 Nicotine dependence, cigarettes, uncomplicated; Z79.899 Other long term (current) drug therapy; Z79.01 Long term (current) use of anticoagulants; Z20.822 Contact with and (suspected) exposure to COVID-19
CPT/HCPCS: 0241U; 36415; 71046; 80053; 83605; 83880; 84484; 85025; 87040; 93005; 93010; 93970; 96365; 96375; 96376; 99285-25; A9270; G0378; J0456; J0696; J7050

== ENCOUNTER 2022-08-16 06:31 | Day surgery (SDC) | payer OTHER ==
[~2022-08-16] VITALS: Ht 185.4 cm; Wt 90.9 kg
[~2022-08-16 06:31] MED LIST changes: +ALBU90OI INH; +ALPR.25 PO; +AZIT250 PO; +DIGOX250 MCG PO; +KAPSPARGO SPRI100 MG PO; +Percocet 10-321 EACH PO
[2022-08-16] MEDS ORDERED: Aspir 8181 MG PO (06:57)
[2022-08-16] MEDS ORDERED: OMEP20ER PO (06:57)
[2022-08-16] MEDS ORDERED: ATOR80 PO (06:58)
--- NOTE | 2022-08-16 07:00 | NUR ---
PT ARRIVED FOR PLANNED PCI LAD. PT NOT WEARING LIFE VEST UPON ARRIVAL. PT REPORTS HE HAS NOT BEEN WEARING LIFE VEST REGUARLY.
[2022-08-16] MEDS ORDERED: ENTRESTO 24 MG1 EACH PO (07:48)
--- NOTE | 2022-08-16 09:09 | NUR ---
PT RETURNED BACK TO RECOVERY ROOM IN RECLINER. RIGHT RADIAL TR BAND SITE SOFT NON-TENDER WITH NO HEMATOMA, NO PULSATILE BLEEDING. PT DENIES CHEST PAIN. ZOLL AT BEDSIDE. PT'S FAMILY IN ROOM. CALL LIGHT IN REACH; TP EATING BREAKFAST.
[2022-08-16] MEDS ORDERED: PANT20 PO (09:27)
[2022-08-16] MEDS ORDERED: CLOP75 PO (09:27)
--- NOTE | 2022-08-16 11:50 | NUR ---
2 CC OF AIR REMOVED FROM R TR BAND. SITE C/D/I SOFT/NONTENDER, NO EVIDENCE OF HEMATOMA. PATIENT DENYING ANY CP. PATIENT AMBULATING AND VOIDING TO RESTROOM WITHOUT DIFFICULTY. PATIENT TOLERATING PO INTAKE WELL. VSS ON ROOM AIR.
--- NOTE | 2022-08-16 12:20 | NUR ---
ALL AIR REMOVED FROM R RADIAL TR BAND. SITE C/D/I, SOFT/NONTENDER, NO EVIDENCE OF HEMATOMA. VSS ON ROOM AIR.
--- NOTE | 2022-08-16 12:43 | NUR ---
JORGE A CUMMINGS STATED TR BAND WAS COMPLETELY DEFLATED BY 1210. RIGHT RADIAL TR BAND SITE STILL SOFT NON-TENDER WITH NO HEMATOMA AND NO PULSATILE BLEEDING. DISCHARGE INSTURCTONS REVIEWED AND ALL QUESTIONS ANSWERED.
--- NOTE | 2022-08-16 13:04 | NUR ---
DEFLATED RIGHT TR BAND REMOVED AND POLYMEM PLACED OVER RIGHT RADIAL SITE WITH WRIST BOARD IN PLACE. 20 G IV DISCONTINUED FROM LEFT HAND WITH INTACT CANNULA. NO CHANGES TO R RAD SITE. PT ESCORTED OUT VIA WHEELCHAIR ESCORT.
== END 2022-08-16 13:00 | disposition home or self-care (01) ==
LOC: MHTC 06:31
DX: I25.10 Atherosclerotic heart disease of native coronary artery without angina pectoris (principal); I42.0 Dilated cardiomyopathy
CPT/HCPCS: 76937; 85347; 92978; 99152; 99153; A9270; C1725; C1753; C1761; C1769; C1874; C1887; C1894; C9600; C9602; J1644; J2250; J3010; J7030; J7040; J7050; Q9967

== ENCOUNTER 2023-01-13 21:49 | Observation (INO) | payer OTHER ==
[~2023-01-13] VITALS: Ht 188 cm; Wt 104.0 kg
[~2023-01-13 21:49] MED LIST changes: +ATOR40TA PO; +ATOR80 PO; +Aspir 8181 MG PO; +CLOP75 PO; +ENTRESTO 24 MG1 EACH PO; +METO100ER PO; +OMEP20ER PO; +PANT20 PO; +POTCHL20ER PO; +SERT50 PO
[2023-01-13 22:29] LABS: BASOPHILS PERCENT AUTO 1 % (0-2); EOSINOPHILS ABSOLUTE AUTO 0.31 K/mm3 (0.00-0.68); EOSINOPHILS PERCENT AUTO 2 % (0-6); Hematocrit 42.5 % (37.0-53.0); Hemoglobin 14.8 g/dL (13.5-17.5); IMMATURE GRAN ABSOLUTE AUTO 0.34 K/mm3 (0.00-0.10); IMMATURE GRAN PERCENT AUTO 2 % (0-1); LYMPHOCYTES ABSOLUTE AUTO 3.77 K/mm3 (0.84-5.20); LYMPHOCYTES PERCENT AUTO 27 % (21-46); MONOCYTES ABSOLUTE AUTO 1.23 K/mm3 (0.16-1.47); MONOCYTES PERCENT AUTO 9 % (4-13); Mean Corpuscular HGB 29.3 pg (26.0-34.0); Mean Corpuscular HGB Conc 34.8 g/dL (31.5-36.5); Mean Corpuscular Volume 84 fL (80-100); Mean Platelet Volume 10.3 fL (9.1-12.4); NEUTROPHILS ABSOLUTE AUTO 8.29 K/mm3 (1.96-9.15); NEUTROPHILS PERCENT AUTO 59 % (41-73); Platelet Count 251 K/mm3 (150-400); RDW Coefficient Variation 13.5 % (11.7-14.2); RDW Standard Deviation 41.7 fL (35.1-46.3); Red Blood Cell Count 5.05 M/mm3 (4.30-5.90); White Blood Cell Count 14.04 K/mm3 (4.00-11.30)
[2023-01-13 22:49] LABS: Albumin, Blood 3.5 g/dL (3.4-5.0); Albumin/Globulin Ratio 1.2 (0.8-1.8); Bilirubin, Total 0.3 mg/dL (0.1-1.0); Bun/Creatinine Ratio 13.5 (12.0-20.0); Calcium, Blood 8.2 mg/dL (8.5-10.1); Creatinine, Blood 2.45 mg/dL (0.60-1.20); Globulin, Blood 2.8 g/dL (2.2-4.0); Potassium, Blood 3.3 mmol/L (3.5-5.5); Total Protein, Blood 6.3 g/dL (6.4-8.2)
[2023-01-14 00:16] LABS: Digoxin (Lanoxin) 0.93 ug/mL (0.80-2.00)
[2023-01-14 03:42] LABS: Source, Urine Clean Catch
[2023-01-14 03:48] LABS: Bilirubin, Urine Neg (Neg); Blood, Urine Neg (Neg); Glucose Qualitative, Urine 3+ (Neg); Ketones, Urine Neg (Neg); Leukocyte Esterase, Urine Neg (Neg); Nitrite, Urine Neg (Neg); Protein, Urine Neg (Neg); Specific Gravity, Urine 1.015 (1.003-1.022); Urobilinogen, Urine NORM (Normal)
[2023-01-14 04:19] LABS: Appearance, Urine Clear (Clear); Color, Urine Yellow (P-Yellow)
[2023-01-14 06:05] LABS: BASOPHILS ABSOLUTE AUTO 0.08 K/mm3 (0.00-0.23); BASOPHILS PERCENT AUTO 1 % (0-2); EOSINOPHILS ABSOLUTE AUTO 0.19 K/mm3 (0.00-0.68); EOSINOPHILS PERCENT AUTO 2 % (0-6); Hematocrit 46.6 % (37.0-53.0); Hemoglobin 16.1 g/dL (13.5-17.5); IMMATURE GRAN ABSOLUTE AUTO 0.21 K/mm3 (0.00-0.10); IMMATURE GRAN PERCENT AUTO 2 % (0-1); LYMPHOCYTES ABSOLUTE AUTO 3.98 K/mm3 (0.84-5.20); LYMPHOCYTES PERCENT AUTO 31 % (21-46); MONOCYTES ABSOLUTE AUTO 0.86 K/mm3 (0.16-1.47); MONOCYTES PERCENT AUTO 7 % (4-13); Mean Corpuscular HGB 29.7 pg (26.0-34.0); Mean Corpuscular HGB Conc 34.5 g/dL (31.5-36.5); Mean Corpuscular Volume 86 fL (80-100); Mean Platelet Volume 10.1 fL (9.1-12.4); NEUTROPHILS PERCENT AUTO 59 % (41-73); Platelet Count 266 K/mm3 (150-400); RDW Coefficient Variation 13.8 % (11.7-14.2); RDW Standard Deviation 42.5 fL (35.1-46.3); Red Blood Cell Count 5.43 M/mm3 (4.30-5.90); White Blood Cell Count 12.92 K/mm3 (4.00-11.30)
[2023-01-14 06:30] LABS: Albumin/Globulin Ratio 1.2 (0.8-1.8); Bilirubin, Total 0.5 mg/dL (0.1-1.0); Bun/Creatinine Ratio 17.3 (12.0-20.0); Calcium, Blood 8.9 mg/dL (8.5-10.1); Creatinine, Blood 1.62 mg/dL (0.60-1.20); Globulin, Blood 3.4 g/dL (2.2-4.0); Potassium, Blood 4.1 mmol/L (3.5-5.5); Total Protein, Blood 7.4 g/dL (6.4-8.2)
[2023-01-14 07:43] VITALS: BP 117/75
--- NOTE | 2023-01-14 10:34 | NUR ---
CARE ASSUMPTION/DISCHAGGE EDUCATION This RN assumed care at 0700. vital signs stable. tele sr. patient is alert and oriented x4. perrla. patient reports no chest pain/pressure, shortness of breath, or pain. see shift assessment for further detiaks. MD burden in room and discussed plan of care. this rn went over discharge education and follow up appointments. no changes to medications. patient verbalized understanding of follow up appointments and dehydration. patient awaiting ride and then will walk out.
--- NOTE | 2023-01-14 11:46 | NUR ---
DISCHARGE PATIENT LEFT WITH ALL BELONGINGS AND IN NO DISTRESS
== END 2023-01-14 11:02 | disposition home or self-care (01) ==
LOC: ER 21:49 → PCU 21:50
PROVIDERS: Emergency Medicine; ADMIT Internal Medicine
DX: N17.9 Acute kidney failure, unspecified (principal); I42.9 Cardiomyopathy, unspecified; E86.0 Dehydration; E87.6 Hypokalemia; I25.10 Atherosclerotic heart disease of native coronary artery without angina pectoris; I50.22 Chronic systolic (congestive) heart failure; Z79.02 Long term (current) use of antithrombotics/antiplatelets; Z79.82 Long term (current) use of aspirin
CPT/HCPCS: 36415; 71045; 80053; 80162; 81003; 82947; 83735; 83880; 84484; 85025; 96360; 96372; 99285-25; A9270; C9113; G0378; J1644; J7040